=== PATIENT | female | born 1995 | race Two or more races ===

== ENCOUNTER 2020-08-28 20:05 | Emergency (ER) | payer MEDICAID, OTHER ==
[~2020-08-28] VITALS: Ht 154.9 cm; Wt 61.7 kg
[2020-08-28 20:59] VITALS: BP 121/65
[2020-08-28] MEDS ORDERED: FLUORESCEIN SOD 1 MG TEST STRIP RIGHTEYE ONE (22:30)
[2020-08-28] MEDS ORDERED: TETRACAINE HCL 0.5% OPTH(EYE) SOLN 4ML RIGHTEYE ONE (22:30)
== END 2020-08-28 23:35 | disposition home or self-care (01) ==
LOC: ER 20:05
DX: S05.01XA Injury of conjunctiva and corneal abrasion without foreign body, right eye, initial encounter (principal); X58.XXXA Exposure to other specified factors, initial encounter; Y93.89 Activity, other specified; Y92.89 Other specified places as the place of occurrence of the external cause; Y99.8 Other external cause status

== ENCOUNTER 2020-12-12 12:25 | Emergency (ER) | payer MEDICAID ==
[~2020-12-12] VITALS: Ht 154.9 cm; Wt 63.5 kg
[2020-12-12] MEDS ORDERED: ACETAMINOPHEN 325 MG TAB PO ONE (12:45)
[2020-12-12 13:13] VITALS: BP 110/68
[2020-12-12] MEDS ORDERED: LIDOCAINE 1% HCL (LOCAL ANESTH.) INJ 20ML MDV ONE (13:21)
[2020-12-12] MEDS ORDERED: cefTRIAXone SOD 1,000 MG VL IM ONE (13:30)
== END 2020-12-12 14:05 | disposition home or self-care (01) ==
LOC: ER 12:25
DX: J03.90 Acute tonsillitis, unspecified (principal); H66.93 Otitis media, unspecified, bilateral
CPT/HCPCS: 71046; 96372; 99283; J0696; J2001